=== PATIENT | female | born 1945 | race Caucasian/White ===

== ENCOUNTER 2017-12-16 15:59 | Inpatient (IN) ==
[2017-12-16 16:42] LABS: Basophils % 0.7 % (0.0-0.8); Eosinophils # 0.2 10*3/uL (0.0-0.87); Eosinophils % 3.3 % (0.00-10.9); Hematocrit 37.5 VOL% (35.7-47.0); Hemoglobin 12.5 GM/DL (12.0-16.0); Immature Granulocytes % 0.2 %; Immature Granulocytes Absolute 0.01 #; Lymphocytes # 2.1 10*3/uL (1.4-4.0); Lymphocytes % 36.2 % (21.3-54.2); Mean Corpuscular HGB Conc 33.3 GM/DL (32-36); Mean Corpuscular Hemoglobin 30 PG (27-34); Mean Corpuscular Volume 90.1 FL (87-102); Mean Platelet Volume 9.3 FL (9.6-12.0); Monocytes # 0.5 10*3/uL (0.11-0.8); Neutrophils % 51.6 % (38.7-73.9); Platelet Count 220 T/CUMM (130-400); Red Blood Count 4.16 MC/CUMM (3.8-5.5); Red Cell Distribution Width 11.9 % (9.3-17.3); White Blood Count 5.8 T/CUMM (4-12)
[2017-12-16 17:12] LABS: Alanine Aminotransferase 17 U/L (13-56); Albumin 3.8 G/DL (3.4-5.0); Alkaline Phosphatase 111 U/L (45-117); Aspartate Amino Transferase 19 U/L (0-37); Bilirubin,Total < 0.39 MG/DL (0.2-1.0); Blood Urea Nitrogen 18 MG/DL (7-18); Calcium 8.5 MG/DL (8.5-10.1); Glucose 124 MG/DL (74-106); Osmolality,Calculated 285.1 MOS/KG (273-304); Potassium 3.5 MMOL/L (3.5-5.1); Sodium 142 MMOL/L (136-145); Total Protein 7.4 G/DL (6.4-8.3); Troponin I Only < 0.015 NG/ML (0.00-0.045)
[2017-12-16] MEDS ORDERED: ONDANSETRON 4 MG/2 ML VIAL IV PRN (17:50)
[2017-12-16] MEDS ORDERED: ACETAMINOPHEN 325 MG TABLET PO PRN (17:50)
[2017-12-16 18:06] LABS: Amorphous Crystals,Urine Occasional /HPF (Few); Apearance,Urine CLOUDY (Clear); Bilirubin,Urine Negative (Negative); Blood, Urine Negative (Negative); Glucose,Urine (UA) Negative (Negative); Ketones,Urine Negative (Negative); Nitrite,Urine Negative (Negative); Protein,Urine Negative; Squamous Epithelial Cell,Urine Occasional /HPF (0-10); Urine Color Yellow (Yellow); Urine Specific Gravity 1.009 (1.001-1.035); Urine Urobilinogen < 2.0 EU/DL (0.2-1.0); WBC,Urine 4 /HPF (0-6)
[2017-12-16] MEDS ORDERED: KETOROLAC 30 MG/1 ML VIAL IV STA (18:13)
[2017-12-16] MEDS ORDERED: PROMETHAZINE 25 MG/1 ML VIAL IM PRN (18:20)
[2017-12-16] MEDS ORDERED: PROMETHAZINE 25 MG/1 ML VIAL IM STA (18:20)
[2017-12-16] MEDS ORDERED: CYCLOBENZAPRINE 10 MG TABLET PO PRN (18:21)
[2017-12-16] MEDS ORDERED: BUTALBITAL/ACETAMIN/CAFFEINE 50-325-40 MG TABLET PO PRN (19:48)
[2017-12-16] MEDS ORDERED: KETOROLAC 30 MG/1 ML VIAL ONE (19:56)
[2017-12-16] MEDS ORDERED: PROMETHAZINE 25 MG/1 ML VIAL ONE (19:56)
[2017-12-16] MEDS: SODIUM CHLORIDE 0.9% 1,000 ML IV SCH (21:03)
[2017-12-16] MEDS: traZODone 50 MG TABLET PO SCH (21:04)
[2017-12-16] MEDS: TOPIRAMATE 25 MG TABLET PO SCH (21:04)
[2017-12-16] MEDS: TOPIRAMATE 100 MG TABLET PO SCH (21:04)
[2017-12-16 21:05] LABS: Troponin I Only < 0.015 NG/ML (0.00-0.045)
[2017-12-16] MEDS: ENOXAPARIN 40 MG/0.4 ML SYRINGE SUBCUT SCH (21:06)
[2017-12-17 05:11] LABS: Basophils % 0.6 % (0.0-0.8); Eosinophils # 0.3 10*3/uL (0.0-0.87); Hematocrit 34.9 VOL% (35.7-47.0); Hemoglobin 11.6 GM/DL (12.0-16.0); Immature Granulocytes % 0.2 %; Immature Granulocytes Absolute 0.01 #; Lymphocytes # 2.9 10*3/uL (1.4-4.0); Lymphocytes % 46.7 % (21.3-54.2); Mean Corpuscular HGB Conc 33.2 GM/DL (32-36); Mean Corpuscular Hemoglobin 30 PG (27-34); Mean Corpuscular Volume 90.6 FL (87-102); Monocytes # 0.6 10*3/uL (0.11-0.8); Monocytes % 9.3 % (1.7-12.7); Neutrophils # 2.4 10*3/uL (1.4-7.4); Neutrophils % 39.2 % (38.7-73.9); Platelet Count 216 T/CUMM (130-400); Red Blood Count 3.85 MC/CUMM (3.8-5.5); Red Cell Distribution Width 12.1 % (9.3-17.3); White Blood Count 6.2 T/CUMM (4-12)
[2017-12-17 05:47] LABS: Albumin 3.4 G/DL (3.4-5.0); Bilirubin,Total 0.5 MG/DL (0.2-1.0); Calcium 8.4 MG/DL (8.5-10.1); Osmolality,Calculated 290.7 MOS/KG (273-304); Potassium 3.5 MMOL/L (3.5-5.1); Risk Ratio 7.86; Total Protein 6.5 G/DL (6.4-8.3); Troponin I Only < 0.015 NG/ML (0.00-0.045)
[2017-12-17] MEDS: KETOROLAC 30 MG/1 ML VIAL IV PRN (08:52)
[2017-12-17] MEDS: CHOLECALCIFEROL 5,000 UNIT TABLET PO SCH (08:53)
[2017-12-17] MEDS: SERTRALINE 50 MG TABLET PO SCH (08:53)
[2017-12-17] MEDS: amLODIPine 10 MG TABLET PO SCH (08:53)
[2017-12-17] MEDS: SODIUM CHLORIDE 0.9% 1,000 ML IV SCH ×2 (08:53→21:43)
[2017-12-17] MEDS: ASPIRIN 325 MG TABLET PO SCH (08:53)
[2017-12-17] MEDS: CETIRIZINE 10 MG TABLET PO SCH (08:54)
[2017-12-17] MEDS: PANTOPRAZOLE 40 MG TABLET PO SCH (08:54)
[2017-12-17] MEDS: TOPIRAMATE 100 MG TABLET PO SCH ×2 (08:54→21:12)
[2017-12-17] MEDS: TOPIRAMATE 25 MG TABLET PO SCH ×2 (08:54→21:12)
[2017-12-17] MEDS ORDERED: DEXTROSE 50% 25 GM/50 ML VIAL IV PRN (09:27)
[2017-12-17] MEDS ORDERED: GLUCAGON 1 MG VIAL IM PRN (09:27)
[2017-12-17] MEDS ORDERED: LORazepam 2 MG/1 ML VIAL IV PRN (09:28)
[2017-12-17] MEDS: INSULIN LISPRO 100 UNIT/ML SUBCUT SCH ×3 (12:49→21:44)
[2017-12-17] MEDS: GEMFIBROZIL 600 MG TABLET PO SCH (17:17)
[2017-12-17] MEDS: traZODone 50 MG TABLET PO SCH (21:12)
[2017-12-17] MEDS: ENOXAPARIN 40 MG/0.4 ML SYRINGE SUBCUT SCH (21:13)
[2017-12-18] MEDS: SODIUM CHLORIDE 0.9% 1,000 ML IV SCH (04:19)
[2017-12-18] MEDS: INSULIN LISPRO 100 UNIT/ML SUBCUT SCH ×2 (07:54→13:08)
[2017-12-18] MEDS: amLODIPine 10 MG TABLET PO SCH (08:39)
[2017-12-18] MEDS: CETIRIZINE 10 MG TABLET PO SCH (08:39)
[2017-12-18] MEDS: PANTOPRAZOLE 40 MG TABLET PO SCH (08:39)
[2017-12-18] MEDS: GEMFIBROZIL 600 MG TABLET PO SCH (08:39)
[2017-12-18] MEDS: ASPIRIN 325 MG TABLET PO SCH (08:39)
[2017-12-18] MEDS: TOPIRAMATE 25 MG TABLET PO SCH (08:39)
[2017-12-18] MEDS: CHOLECALCIFEROL 5,000 UNIT TABLET PO SCH (08:39)
[2017-12-18] MEDS: SERTRALINE 50 MG TABLET PO SCH (08:39)
[2017-12-18] MEDS: TOPIRAMATE 100 MG TABLET PO SCH (08:39)
[2017-12-18] MEDS: KETOROLAC 30 MG/1 ML VIAL IV PRN (09:14)
[2017-12-18 13:10] VITALS: BP 126/74
== END 2017-12-18 12:30 | disposition home or self-care (01) | DRG 312 ==
LOC: EDBD → EDUNIT# → N.ED 15:59 → N.EDINP 17:49 → N.4E 19:23
PROVIDERS: ADMIT Internal Medicine; ATTEND Internal Medicine